=== PATIENT | female | born 1995 | race Caucasian/White ===

== ENCOUNTER 2021-04-15 17:19 | Emergency (ER) | payer OTHER, SELFPAY ==
[2021-04-15] VITALS (27 sets, daily range): BP systolic 94–130; BP diastolic 62–82; PULSE 64–94; RESP 14–24; TEMP 36.9; O2SAT 95–100; BMI 25.7
--- NOTE | 2021-04-15 17:28 | DI.CT.S_ITS ---
PROCEDURE: CT STROKE INDICATIONS: sudden vision loss w/ pupil change TECHNIQUE: Noncontrast 4.5 mm thick angled axial sections acquired from the foramen magnum to the vertex, with coronal reformats. For radiation dose reduction, the following was used: automated exposure control, adjustment of mA and/or kV according to patient size. COMPARISON: None. FINDINGS: Image quality: Excellent. CSF spaces: Basal cisterns are patent. No extra-axial fluid collections. Ventricles are normal in size and shape. Brain: No midline shift. No intracranial masses or hemorrhage. Spears-white matter interface is normal. Skull and face: Calvarium and visualized facial bones are intact, without suspicious lesions. Sinuses: Visualized sinuses and mastoids are clear. IMPRESSION: 1. No CT evidence of acute intracranial process. 2. Findings discussed with Dr. Muse are in the emergency room at 17:41 hours. This study fulfills neurological imaging criteria for inclusion or exclusion of acute stroke therapies based on available published neurological imaging guidelines. Dictated by: Corine Huddleston M.D. on 04/15/2021 at 17:39 Approved by: Corine Huddleston M.D. on 04/15/2021 at 17:42
--- NOTE | 2021-04-15 17:42 | DI.CT.S_ITS ---
PROCEDURE: CT ANGIO HEAD AND NECK INDICATIONS: code stroke TECHNIQUE: After the administration of intravenous contrast, 1 mm thick sections acquired from the aortic arch through the [employer] [place] [employer] [place]. Post-contrast 4.5 mm thick sections then re-acquired from the foramen magnum to the vertex. 3-dimensional nxmjhpm-buzospwgw-fntcnzligg (MIP) and/or volume rendering reformats were acquired of the central intracranial vasculature and neck separately. COMPARISON: None. FINDINGS: Image quality: Excellent. BRAIN: CSF spaces: Ventricles are normal in size and shape. Basal cisterns are patent. No extra-axial fluid collections. Brain: No midline shift. No intracranial bleeds or masses. Spears-white matter interface appears intact. Skull and face: Calvarium and facial bones appear intact, without suspicious lesions. Orbits appear normal. Sinuses: Sinuses and mastoids are clear. HEAD CT ANGIOGRAPHY: Anterior circulation: Intracranial internal carotid arteries are normal in size and flow. The flow within the paired anterior cerebral arteries is normal and symmetric. The flow within the middle cerebral arteries is normal and symmetric. The anterior communicating artery is seen. No aneurysms are seen. Posterior circulation: Visualized portions of the vertebral arteries demonstrate normal caliber, and join to form a normal appearing basilar artery. Flow within the posterior cerebral arteries is normal and symmetric. No aneurysms are seen. NECK CT ANGIOGRAPHY: Carotid system: The great vessels demonstrate a conventional anatomy as they arise from the aortic arch. The origins of the common carotid arteries appear patent. The common carotid arteries demonstrate normal caliber and courses. The bifurcation regions are both widely patent. The internal carotid arteries demonstrate normal calibers and courses. Posterior circulation: The origins of the vertebral arteries both appear widely patent. The more superior extracranial portions of both vertebral arteries also demonstrate normal courses and calibers. They join to form a normal appearing basilar artery. Soft tissues: Visualized neck soft tissues demonstrate no suspicious abnormalities. Bones: No suspicious bony lesions. Visualized cervical spine appears normally aligned. IMPRESSION: 1. Normal CT angiogram of the head without evidence of aneurysm or vascular occlusion. 2. Normal CT angiogram of the neck without dissection or vascular occlusion. 3. No postcontrast abnormalities in the brain. Any quantitative measurements of stenosis were performed using NASCET criteria. Dictated by: Corine Huddleston M.D. on 04/15/2021 at 18:36 Approved by: Corine Huddleston M.D. on 04/15/2021 at 18:45
--- NOTE | 2021-04-15 17:45 | ED_ITS ---
HPI - Neuro Symptoms/Deficit <Markel Muse DO - Last Filed: 04/16/21 06:57> General Chief Complaint: Neuro Symptoms/Deficit Stated Complaint: sudden eye problems, passed out Time Seen by Provider: 04/15/21 17:41 History of Present Illness HPI Narrative: Patient is a 25-year-old female here for evaluation of vision changes to her right eye, reported seizure-like activity, headache. It was reported that approximately 20 minutes prior to arrival here in the emergency department they were sitting outside. She states she started having irritation in her right eye. Her friends then looked at her noticed that her right eye was more dilated than the left. She states that she felt like she needed to keep her eye closed because it was very bright and that I. Has some blurry vision in that right eye. In route here to the emergency department she had was reported be seizure-like activity. Is afebrile. No trauma. Did not appear to have any postictal state for description of friends at bedside. Has never had anything like this in the past. On Anticoagulants: No Related Data Allergies Allergy/AdvReac Type Severity Reaction Status Date / Time No Known Drug Allergies Allergy Verified 04/15/21 17:57 Review of Systems <Markel Muse DO - Last Filed: 04/16/21 06:57> Constitutional Constitutional: Denies fatigue, Denies fever(s) and Reports headache(s) Eyes Eyes: Reports as per HPI and Reports blurry vision ENT Ears, Nose, Mouth, and Throat: Denies dizziness, Reports headache(s), Denies disequilibrium and Denies sore throat Cardiovascular Cardiovascular: Denies chest pain, Denies syncope and Denies dyspnea Respiratory Respiratory: Denies dyspnea Gastrointestinal Gastrointestinal: Denies abdominal pain Genitourinary Genitourinary: Denies dysuria Musculoskeletal Musculoskeletal: Reports system reviewed and no additional complaints, except as documented Integumentary/Breasts Skin/Breast: Reports system reviewed and no additional complaints, except as documented Neurologic Neurologic: Denies abnormal speech, Denies behavioral changes, Denies confusion, Denies dizziness, Denies syncope, Reports headache(s), Reports convulsions, Reports seizure-like activity and Denies disequilibrium Psychiatric Psychiatric: Denies behavioral changes and Denies confusion Endocrine Endocrine: Reports system reviewed and no additional complaints, except as documented and Denies fatigue Hematologic/Lymphatic On Anticoagulants: No Allergic/Immunologic Allergic/Immunologic: Reports system reviewed and no additional complaints, except as documented Patient History <Markel Muse DO - Last Filed: 04/16/21 06:57> Medical History Healthy adult Social History lives independently: Yes Smoking Status: Current some day smoker Exam <Markel Mues DO - Last Filed: 04/16/21 06:57> Initial Vital Signs Initial Vital Signs: Vital Signs Temperature 98.5 F 04/15/21 17:42 Pulse Rate 70 04/15/21 17:42 Respiratory Rate 18 04/15/21 17:42 Blood Pressure 94/62 04/15/21 17:42 Pulse Oximetry 100 04/15/21 17:42 Const General: cooperative, healthy appearing, comfortable, well developed and No ill appearing Nutritional Appearance: average body habitus HENMT Head: normal to inspection and normocephalic Nose: external nose normal Face and sinus: normal facial exam Mouth: oral mucosae normal Teeth and gingiva: dentition normal Eyes Periorbital: periorbital findings normal Eyelids: eyelids normal EOM: EOM intact bilaterally Other: Right pupil 9 mm and nonreactive. Left pupil 3-4 mm and reactive. Interocular pressure right eye 33. Interocular pressure left eye 22 Neck Neck: normal visual inspection Chest Chest: normal inspection of the chest Resp Effort & Inspection: normal respiratory effort Auscultation: clear to auscultation bilaterally Cardio Rate: regular rate Rhythm: regular rhythm GI Inspection: normal to inspection Palpation: soft Skin General: no rashes or lesions noted Neuro General: patient alert, patient awake, patient oriented x3, moves all extremities and not confused Speech: speech normal Gait: normal gait Motor: muscle tone normal throughout Extrem General: normal to inspection and capillary refill normal Psych Appearance: grossly normal and well kempt <Chantel Moulton MD - Last Filed: 04/16/21 04:32> Initial Vital Signs Initial Vital Signs: Vital Signs Temperature 98.5 F 04/15/21 17:42 Pulse Rate 70 04/15/21 17:42 Respiratory Rate 18 04/15/21 17:42 Blood Pressure 94/62 04/15/21 17:42 Pulse Oximetry 100 04/15/21 17:42 Scores <Markel Muse DO - Last Filed: 04/16/21 06:57> GCS Lovejoy coma scale eye opening: Spontaneous Jia coma scale verbal response: Orientated Lovejoy coma scale motor response: Obey commands Lovejoy coma scale total score: 15 NIH Stroke Scale Level of Conciousness: Alert, keenly responsive Ask month/age: Answers both questions correctly. Open/close eyes, close hand: Performs both tasks correctly Best gaze horizontal: Normal Visual garcia: No visual loss Facial palsy: Normal symetrical movement Left arm drift: No drift for full 10 sec Right arm drift: No drift for full 10 sec Left leg drift: No drift for full 5 sec Right leg drift: No drift for full 5 sec Limb ataxia: Absent Sensory on face/arms/legs: Mild to moderate sensory loss, can tell touch Best language: No aphasia, normal Dysarthria: Normal Extinction or inattention: No abnormality Total NIH Stroke scale score: 1 <Chantel Moulton MD - Last Filed: 04/16/21 04:32> GCS Jia coma scale total score: 15 NIH Stroke Scale Total NIH Stroke scale score: 1 Course <Markel Muse DO - Last Filed: 04/16/21 06:57> Orders Ordered: Discontinued Medications Fluorescein Sodium (Fluorescein 1 Mg Strip) 1 mg EYE-BOTH NOW ONE Stop: 04/15/21 17:44 Last Admin: 04/15/21 17:58 Dose: 1 mg Documented by: JEVON Pilocarpine HCl (Pilocarpine 1% Ophth Drops 15 Ml) 1 drops EYE-BOTH NOW ONE Stop: 04/15/21 21:39 Last Admin: 04/15/21 22:46 Dose: 1 drops Documented by: KOMAL Proparacaine HCl (Proparacaine 0.5% Ophth Bella) 1 drops EYE-RIGHT NOW ONE Stop: 04/15/21 17:44 Last Admin: 04/15/21 17:58 Dose: 1 drop Documented by: JEVON Vital Signs Vital signs: Vital Signs - 8 hr 04/15/21 23:00 04/15/21 23:15 04/15/21 23:30 Pulse Rate 94 H 70 68 Respiratory Rate 21 18 Blood Pressure 130/79 108/70 Pulse Oximetry 97 96 98 04/15/21 23:47 Pulse Rate 65 Respiratory Rate 16 Blood Pressure 108/70 Pulse Oximetry 97 <Chantel Moulton MD - Last Filed: 04/16/21 04:32> Course Course Narrative: 852pm Discussed care with [facility]. CT images are being pushed to [facility]. Ophthalmology is being paged. Patient remains stable and unchanged Orders Ordered: Discontinued Medications Fluorescein Sodium (Fluorescein 1 Mg Strip) 1 mg EYE-BOTH NOW ONE Stop: 04/15/21 17:44 Last Admin: 04/15/21 17:58 Dose: 1 mg Documented by: JEVON Pilocarpine HCl (Pilocarpine 1% Ophth Drops 15 Ml) 1 drops EYE-BOTH NOW ONE Stop: 04/15/21 21:39 Last Admin: 04/15/21 22:46 Dose: 1 drops Documented by: KOMAL Proparacaine HCl (Proparacaine 0.5% Ophth Bella) 1 drops EYE-RIGHT NOW ONE Stop: 04/15/21 17:44 Last Admin: 04/15/21 17:58 Dose: 1 drop Documented by: JEVON Vital Signs Vital signs: Vital Signs - 8 hr 04/15/21 23:00 04/15/21 23:15 04/15/21 23:30 Pulse Rate 94 H 70 68 Respiratory Rate 21 18 Blood Pressure 130/79 108/70 Pulse Oximetry 97 96 98 04/15/21 23:47 Pulse Rate 65 Respiratory Rate 16 Blood Pressure 108/70 Pulse Oximetry 97 MDM - Neuro Symptoms/Deficit <Markel Muse DO - Last Filed: 04/16/21 06:57> Lab Data Result diagrams: 04/15/21 17:45 04/15/21 17:45 Labs: Lab Results 04/15/21 04/15/21 04/15/21 Range/Units 17:45 17:45 17:45 WBC 8.8 (4.5-11.0) X10^3/uL RBC 4.67 (4.0-5.2) X10^6/uL Hgb 14.0 (12.0-16.0) g/dL Hct 41.5 (36-46) % MCV 88.8 (80-100) fL MCH 29.9 (26-34) PG MCHC 33.7 (30-36) % RDW 12.4 (11.6-14.8) % Plt Count 276 (150-400) X10^3/uL Neut % (Auto) 56.9 (50-75) % Lymph % (Auto) 34.8 (25-40) % [place] % (Auto) 6.5 (3-14) % Eos % (Auto) 1.1 L (2-4) % Baso % (Auto) 0.7 (0-2) % Neut # (Auto) 5000 (5885-5056) /uL Lymph # (Auto) 3100 (1588-5568) /uL [place] # (Auto) 600 (0-900) /uL Eos # (Auto) 100 (0-450) /uL Baso # (Auto) 100 (0-100) /uL PT (10.1-12.7) SECONDS INR (0.9-1.3) APTT (26.4-36.2) SECONDS Sodium 138 (137-145) mmol/L Potassium 3.5 (3.4-5.1) mmol/L Chloride 104 (98-107) mmol/L Carbon Dioxide 26 (22-32) mmol/L BUN 11 (7-17) mg/dL Creatinine 0.77 (0.52-1.04) mg/dL Estimated GFR > 60.0 (>60) mL/min BUN/Creatinine Ratio 14.3 (6-22) Glucose 115 H (70-100) mg/dL Calcium 9.4 (8.4-10.2) mg/dL Total Bilirubin 0.4 (0.2-1.3) mg/dL AST 23 (14-36) IU/L ALT 14 (<35) IU/L Alkaline Phosphatase 39 (38-126) U/L Total Creatine Kinase 94 (30-135) U/L CK-MB (CK-2) TNP CK-MB (CK-2) Rel Index TNP Troponin I < 0.012 (0.01-0.034) ng/mL Total Protein 7.6 (6.3-8.2) g/dL Albumin 4.5 (3.5-5.0) g/dL Globulin 3.1 (1.7-4.1) g/dL Albumin/Globulin Ratio 1.5 (1.0-2.8) Serum , Qual Negative (Negative) U Opiates 300ng/mL cut (Negative) Ur Oxycodone Screen (Negative) Urine Methadone Screen (Negative) Ur Barbiturates Screen (Negative) U Tricyclic Antidepress (Negative) Ur Phencyclidine Scrn (Negative) Ur Amphetamines Screen (Negative) U Methamphetamines Scrn (Negative) Ur MDMA Scrn (Ecstasy) (Negative) U Benzodiazepines Scrn (Negative) Urine Cocaine Screen (Negative) U Marijuana (THC) Screen (Negative) SARS-CoV-2 (PCR) (Negative) 04/15/21 04/15/21 04/15/21 Range/Units 17:45 18:05 18:08 WBC (4.5-11.0) X10^3/uL RBC (4.0-5.2) X10^6/uL Hgb (12.0-16.0) g/dL Hct (36-46) % MCV (80-100) fL MCH (26-34) PG MCHC (30-36) % RDW (11.6-14.8) % Plt Count (150-400) X10^3/uL Neut % (Auto) (50-75) % Lymph % (Auto) (25-40) % [place] % (Auto) (3-14) % Eos % (Auto) (2-4) % Baso % (Auto) (0-2) % Neut # (Auto) (9809-5003) /uL Lymph # (Auto) (0339-4641) /uL [place] # (Auto) (0-900) /uL Eos # (Auto) (0-450) /uL Baso # (Auto) (0-100) /uL PT 12.2 (10.1-12.7) SECONDS INR 1.1 (0.9-1.3) APTT 29 (26.4-36.2) SECONDS Sodium (137-145) mmol/L Potassium (3.4-5.1) mmol/L Chloride (98-107) mmol/L Carbon Dioxide (22-32) mmol/L BUN (7-17) mg/dL Creatinine (0.52-1.04) mg/dL Estimated GFR (>60) mL/min BUN/Creatinine Ratio (6-22) Glucose (70-100) mg/dL Calcium (8.4-10.2) mg/dL Total Bilirubin (0.2-1.3) mg/dL AST (14-36) IU/L ALT (<35) IU/L Alkaline Phosphatase (38-126) U/L Total Creatine Kinase (30-135) U/L CK-MB (CK-2) CK-MB (CK-2) Rel Index Troponin I (0.01-0.034) ng/mL Total Protein (6.3-8.2) g/dL Albumin (3.5-5.0) g/dL Globulin (1.7-4.1) g/dL Albumin/Globulin Ratio (1.0-2.8) Serum , Qual (Negative) U Opiates 300ng/mL cut Negative (Negative) Ur Oxycodone Screen Negative (Negative) Urine Methadone Screen Negative (Negative) Ur Barbiturates Screen Negative (Negative) U Tricyclic Antidepress Negative (Negative) Ur Phencyclidine Scrn Negative (Negative) Ur Amphetamines Screen Negative (Negative) U Methamphetamines Scrn Negative (Negative) Ur MDMA Scrn (Ecstasy) Negative (Negative) U Benzodiazepines Scrn Negative (Negative) Urine Cocaine Screen Negative (Negative) U Marijuana (THC) Screen Negative (Negative) SARS-CoV-2 (PCR) Negative (Negative) Point of Care Testing Test Results Negative Glucose POC 90 Urine Dip Bedside Urine Glucose Negative Bedside Urine Bilirubin - Negative Bedside Urine Ketone - Negative Urine Specific [place] 1.015 Bedside Urine Occult Blood - Negative Bedside Urine pH 6 Bedside Urine Protein - Negative Bedside Urine Urobilinogen - Negative Bedside Urine Nitrite - Negative Bedside Urine Leukocytes - Negative Esterase Imaging Data CT scan - head: Radiologist's Impression: [address] [id number] Scan ReportSigned Patient: Harini Siddiqi EMR#: [id number]: 1995Acct:[id number]/Sex: 25 / FDate of Service: 04/15/21Loc: EDAccession Number: [id number] Procedure: CT Stroke Ordering Provider: Markel Muse D.O. PROCEDURE: CT STROKE INDICATIONS: sudden vision loss w/ pupil change TECHNIQUE: Noncontrast 4.5 mm thick angled axial sections acquired from the foramen magnum to the vertex, with coronal reformats. For radiation dose reduction, the following was used: automated exposure control, adjustment of mA and/or kV according to patient size. COMPARISON: None. FINDINGS: Image quality: Excellent. CSF spaces: Basal cisterns are patent. No extra-axial fluid collections. Ventricles are normal in size and shape. Brain: No midline shift. No intracranial masses or hemorrhage. Spears-white matter interface is normal. Skull and face: Calvarium and visualized facial bones are intact, without suspicious lesions. Sinuses: Visualized sinuses and mastoids are clear. IMPRESSION: 1. No CT evidence of acute intracranial process. 2. Findings discussed with Dr. Muse are in the emergency room at 17:41 hours. This study fulfills neurological imaging criteria for inclusion or exclusion of acute stroke therapies based on available published neurological imaging guidelines. Dictated by: Corine Huddleston M.D. on 04/15/2021 at 17:39 Approved by: Corine Huddleston M.D. on 04/15/2021 at 17:42 CTA - brain/neck: Radiologist's Impression: [address] [id number] Scan ReportSigned Patient: Harini Siddiqi EMR#: [id number]: 1995Acct:[id number]/Sex: 25 / FDate of Service: 04/15/21Loc: EDAccession Number: [id number] Procedure: CT angio head and neck Ordering Provider: Markel Muse D.O. PROCEDURE: CT ANGIO HEAD AND NECK INDICATIONS: code stroke TECHNIQUE: After the administration of intravenous contrast, 1 mm thick sections acquired from the aortic arch through the [place] of [place]. Post-contrast 4.5 mm thick sections then re-acquired from the foramen magnum to the vertex. 3-dimensional mxjgodz-jmwhdrleb-wlrqoazqlv (MIP) and/or volume rendering reformats were acquired of the central intracranial vasculature and neck separately. COMPARISON: None. FINDINGS: Image quality: Excellent. BRAIN: CSF spaces: Ventricles are normal in size and shape. Basal cisterns are patent. No extra-axial fluid collections. Brain: No midline shift. No intracranial bleeds or masses. Spears-white matter interface appears intact. Skull and face: Calvarium and facial bones appear intact, without suspicious lesions. Orbits appear normal. Sinuses: Sinuses and mastoids are clear. HEAD CT ANGIOGRAPHY: Anterior circulation: Intracranial internal carotid arteries are normal in size and flow. The flow within the paired anterior cerebral arteries is normal and symmetric. The flow within the middle cerebral arteries is normal and symmetric. The anterior communicating artery is seen. No aneurysms are seen. Posterior circulation: Visualized portions of the vertebral arteries demonstrate normal caliber, and join to form a normal appearing basilar artery. Flow within the posterior cerebral arteries is normal and symmetric. No aneurysms are seen. NECK CT ANGIOGRAPHY: Carotid system: The great vessels demonstrate a conventional anatomy as they arise from the aortic arch. The origins of the common carotid arteries appear patent. The common carotid arteries demonstrate normal caliber and courses. The bifurcation regions are both widely patent. The internal carotid arteries demonstrate normal calibers and courses. Posterior circulation: The origins of the vertebral arteries both appear widely patent. The more superior extracranial portions of both vertebral arteries also demonstrate normal courses and calibers. They join to form a normal appearing basilar artery. Soft tissues: Visualized neck soft tissues demonstrate no suspicious abnormalities. Bones: No suspicious bony lesions. Visualized cervical spine appears normally aligned. IMPRESSION: 1. Normal CT angiogram of the head without evidence of aneurysm or vascular occlusion. 2. Normal CT angiogram of the neck without dissection or vascular occlusion. 3. No postcontrast abnormalities in the brain. Any quantitative measurements of stenosis were performed using NASCET criteria. Dictated by: Corine Huddleston M.D. on 04/15/2021 at 18:36 Approved by: Corine Huddleston M.D. on 04/15/2021 at 18:45 ECG Data Attestation: I personally reviewed and interpreted this ECG as follows: Interpretation: Sinus rhythm Ventricular rate is 65 Normal axis Normal QRS Normal QTC No ST T wave changes MDM Narrative Medical decision making narrative: Patient arrived approximately 1 hour prior to the onset of the symptoms. She does have a dilated non reactive right pupil. Her visual acuity is 2020 right eye. [address] and CTA of the head unremarkable. EKG unremarkable. NIH score of 1. Will hold on tPA given this information. Right pupil is nonreactive. Her left pupil does constrict when light is shined into her right eye. Care turned over to Dr. moulton to follow-up and discuss the case with Ophthalmology. <Chantel Moulton MD - Last Filed: 04/16/21 04:32> Lab Data Labs: Lab Results 04/15/21 04/15/21 04/15/21 Range/Units 17:45 17:45 17:45 WBC 8.8 (4.5-11.0) X10^3/uL RBC 4.67 (4.0-5.2) X10^6/uL Hgb 14.0 (12.0-16.0) g/dL Hct 41.5 (36-46) % MCV 88.8 (80-100) fL MCH 29.9 (26-34) PG MCHC 33.7 (30-36) % RDW 12.4 (11.6-14.8) % Plt Count 276 (150-400) X10^3/uL Neut % (Auto) 56.9 (50-75) % Lymph % (Auto) 34.8 (25-40) % [place] % (Auto) 6.5 (3-14) % Eos % (Auto) 1.1 L (2-4) % Baso % (Auto) 0.7 (0-2) % Neut # (Auto) 5000 (1019-2587) /uL Lymph # (Auto) 3100 (0272-7138) /uL [place] # (Auto) 600 (0-900) /uL Eos # (Auto) 100 (0-450) /uL Baso # (Auto) 100 (0-100) /uL PT (10.1-12.7) SECONDS INR (0.9-1.3) APTT (26.4-36.2) SECONDS Sodium 138 (137-145) mmol/L Potassium 3.5 (3.4-5.1) mmol/L Chloride 104 (98-107) mmol/L Carbon Dioxide 26 (22-32) mmol/L BUN 11 (7-17) mg/dL Creatinine 0.77 (0.52-1.04) mg/dL Estimated GFR > 60.0 (>60) mL/min BUN/Creatinine Ratio 14.3 (6-22) Glucose 115 H (70-100) mg/dL Calcium 9.4 (8.4-10.2) mg/dL Total Bilirubin 0.4 (0.2-1.3) mg/dL AST 23 (14-36) IU/L ALT 14 (<35) IU/L Alkaline Phosphatase 39 (38-126) U/L Total Creatine Kinase 94 (30-135) U/L CK-MB (CK-2) TNP CK-MB (CK-2) Rel Index TNP Troponin I < 0.012 (0.01-0.034) ng/mL Total Protein 7.6 (6.3-8.2) g/dL Albumin 4.5 (3.5-5.0) g/dL Globulin 3.1 (1.7-4.1) g/dL Albumin/Globulin Ratio 1.5 (1.0-2.8) Serum , Qual Negative (Negative) U Opiates 300ng/mL cut (Negative) Ur Oxycodone Screen (Negative) Urine Methadone Screen (Negative) Ur Barbiturates Screen (Negative) U Tricyclic Antidepress (Negative) Ur Phencyclidine Scrn (Negative) Ur Amphetamines Screen (Negative) U Methamphetamines Scrn (Negative) Ur MDMA Scrn (Ecstasy) (Negative) U Benzodiazepines Scrn (Negative) Urine Cocaine Screen (Negative) U Marijuana (THC) Screen (Negative) SARS-CoV-2 (PCR) (Negative) 04/15/21 04/15/21 04/15/21 Range/Units 17:45 18:05 18:08 WBC (4.5-11.0) X10^3/uL RBC (4.0-5.2) X10^6/uL Hgb (12.0-16.0) g/dL Hct (36-46) % MCV (80-100) fL MCH (26-34) PG MCHC (30-36) % RDW (11.6-14.8) % Plt Count (150-400) X10^3/uL Neut % (Auto) (50-75) % Lymph % (Auto) (25-40) % [place] % (Auto) (3-14) % Eos % (Auto) (2-4) % Baso % (Auto) (0-2) % Neut # (Auto) (9532-0032) /uL Lymph # (Auto) (4734-9269) /uL [place] # (Auto) (0-900) /uL Eos # (Auto) (0-450) /uL Baso # (Auto) (0-100) /uL PT 12.2 (10.1-12.7) SECONDS INR 1.1 (0.9-1.3) APTT 29 (26.4-36.2) SECONDS Sodium (137-145) mmol/L Potassium (3.4-5.1) mmol/L Chloride (98-107) mmol/L Carbon Dioxide (22-32) mmol/L BUN (7-17) mg/dL Creatinine (0.52-1.04) mg/dL Estimated GFR (>60) mL/min BUN/Creatinine Ratio (6-22) Glucose (70-100) mg/dL Calcium (8.4-10.2) mg/dL Total Bilirubin (0.2-1.3) mg/dL AST (14-36) IU/L ALT (<35) IU/L Alkaline Phosphatase (38-126) U/L Total Creatine Kinase (30-135) U/L CK-MB (CK-2) CK-MB (CK-2) Rel Index Troponin I (0.01-0.034) ng/mL Total Protein (6.3-8.2) g/dL Albumin (3.5-5.0) g/dL Globulin (1.7-4.1) g/dL Albumin/Globulin Ratio (1.0-2.8) Serum , Qual (Negative) U Opiates 300ng/mL cut Negative (Negative) Ur Oxycodone Screen Negative (Negative) Urine Methadone Screen Negative (Negative) Ur Barbiturates Screen Negative (Negative) U Tricyclic Antidepress Negative (Negative) Ur Phencyclidine Scrn Negative (Negative) Ur Amphetamines Screen Negative (Negative) U Methamphetamines Scrn Negative (Negative) Ur MDMA Scrn (Ecstasy) Negative (Negative) U Benzodiazepines Scrn Negative (Negative) Urine Cocaine Screen Negative (Negative) U Marijuana (THC) Screen Negative (Negative) SARS-CoV-2 (PCR) Negative (Negative) Point of Care Testing Test Results Negative Glucose POC 90 Urine Dip Bedside Urine Glucose Negative Bedside Urine Bilirubin - Negative Bedside Urine Ketone - Negative Urine Specific [place] 1.015 Bedside Urine Occult Blood - Negative Bedside Urine pH 6 Bedside Urine Protein - Negative Bedside Urine Urobilinogen - Negative Bedside Urine Nitrite - Negative Bedside Urine Leukocytes - Negative Esterase MDM Narrative Medical decision making narrative: Patient arrived approximately 1 hour prior to the onset of the symptoms. She does have a dilated non reactive right pupil. Her visual acuity is 2020 right eye. [address] and CTA of the head unremarkable. EKG unremarkable. NIH score of 1. Will hold on tPA given this information. Right pupil is nonreactive. Her left pupil does constrict when light is shined into her right eye. Care turned over to Dr. moulton to follow-up and discuss the case with Ophthalmology. 1000pm Discussed with Dr Stuart, othomology. repeat pressures Right 25 Left 33 not acute angle closure or occular hypertension not actue trauma, stroke, aneurysm, retinal detachement, globe rupture REcommonded trial of .05% pilocrpine drop in Right eye. (diluted .1%) done. Pupil constricts to mid position. Vision now blurry. EOEMI. 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 No a true cranial nerve palsy (wouldn't expect constriction with pilocarpine with a cranial nerve palsy) Information from [employer] on tonic pupil/Adie pupil is given to the patient. At this point, I believe she is safe for home discharge. Ophthalmology did not recommend continuing to plan for MRI at this point. He did recommend follow-up with Ophthalmology when she returns home. Findings and recommendations along with very clear return to the ER precautions reviewed with patient. She is safe for home discharge Critical Care Time <Markel Muse, DO - Last Filed: 04/16/21 06:57> Critical Care Time Critical Care Time: Yes Total Critical Care Time: 35 Attestation: The high probability of a clinically significant, sudden or life threatening deterioration of the neurologic system(s) required my full and direct attention, intervention and personal management. The aggregate critical care time was 35 minutes. This time is in addition to time spent performing reported procedures but includes the following: [x] Data Review and interpretation [x] Patient assessment and monitoring of vital signs [x] Documentation [x] Medication orders and management Discharge Plan Departure Patient Disposition: Home Clinical Impression: Adie's tonic pupil Qualifiers: Laterality: right Qualified Code(s): H57.051 - Tonic pupil, right eye Activity Restrictions/Additional Instructions: Thank you for coming in today After blood work, CT of your brain CT a of the head neck and consultation with Ophthalmology at [facility] in [place], I believe the best explanation for your dilated pupil is Adie's pupil I have given you printed information from up-to-date regarding what this diagnosis actually is. I have also given you printed copies of your CTs and when you do return home I would request that you follow-up with ophthalmology. In the meantime, if you have new or worsening symptoms, double vision, loss of vision, repeat near syncopal episode or other concerns please return to the ER I hope the rest of your field work goes well
[2021-04-15 17:53] LABS: Add Manual Diff / Slide Review NO; Basophils Absolute Auto 100 /uL (0-100); Basophils Percent Auto 0.7 % (0-2); Eosinophils Absolute Auto 100 /uL (0-450); Eosinophils Percent Auto 1.1 % (2-4); Hematocrit 41.5 % (36-46); Lymphocytes Absolute Auto 3100 /uL (1100-4500); Lymphocytes Percent Auto 34.8 % (25-40); Mean Corpuscular HGB Conc 33.7 % (30-36); Mean Corpuscular Hemoglobin 29.9 PG (26-34); Mean Corpuscular Volume 88.8 fL (80-100); Monocytes Absolute Auto 600 /uL (0-900); Monocytes Percent Auto 6.5 % (3-14); Neutrophils Absolute Auto 5000 /uL (1500-7000); Neutrophils Percent Auto 56.9 % (50-75); Platelet Count 276 X10^3/uL (150-400); Red Blood Cell Count 4.67 X10^6/uL (4.0-5.2); Red Cell Distribution Width 12.4 % (11.6-14.8); White Blood Cell Count 8.8 X10^3/uL (4.5-11.0)
[2021-04-15] MEDS: FLUORESCEIN 1 MG STRIP EYE-BOTH (17:58)
[2021-04-15] MEDS: PROPARACAINE 0.5% OPHTH SOL 1 DROPS EYE-RIGHT (17:58)
[2021-04-15 18:03] LABS: Pregnancy Test Serum,Qual Negative (Negative)
[2021-04-15 18:04] LABS: Alanine Aminotransferase 14 IU/L (<35); Albumin 4.5 g/dL (3.5-5.0); Albumin Globulin Ratio 1.5 (1.0-2.8); Alkaline Phosphatase 39 U/L (38-126); Aspartate Aminotransferase 23 IU/L (14-36); BUN Creatinine Ratio 14.3 (6-22); Bilirubin Total 0.4 mg/dL (0.2-1.3); Blood Urea Nitrogen 11 mg/dL (7-17); Calcium 9.4 mg/dL (8.4-10.2); Carbon Dioxide 26 mmol/L (22-32); Chloride 104 mmol/L (98-107); Creatine Kinase 94 U/L (30-135); Estimated Glomerular Filt Rate > 60.0 mL/min (>60); Globulin 3.1 g/dL (1.7-4.1); Glucose 115 mg/dL (70-100); HEMOLYSIS < 15 (0-50); Potassium 3.5 mmol/L (3.4-5.1); Sodium 138 mmol/L (137-145); Total Protein 7.6 g/dL (6.3-8.2)
[2021-04-15 18:13] LABS: COVID19 -Nasal RAPID Negative (Negative)
[2021-04-15 18:16] LABS: Troponin I < 0.012 ng/mL (0.01-0.034)
[2021-04-15 18:21] LABS: INR 1.1 (0.9-1.3); Prothrombin Time 12.2 SECONDS (10.1-12.7)
[2021-04-15 18:21] LABS: UR Morphine/Opiate cutoff 300 Negative (Negative); Ur Creatinine Normal (Normal); Ur Specific Gravity Normal (Normal); Urine Amphetamines Negative (Negative); Urine Barbiturates Negative (Negative); Urine Benzodiazepines Negative (Negative); Urine Cocaine Negative (Negative); Urine MDMA Negative (Negative); Urine Methadone Negative (Negative); Urine Methamphetamines Negative (Negative); Urine Oxycodone Negative (Negative); Urine Phencyclidine Negative (Negative); Urine Tetrahydrocannabinol Negative (Negative); Urine Tricyclic Antidepressant Negative (Negative); Urine pH Normal (Normal)
[2021-04-15 18:24] LABS: PTT Partial Thromboplastin Tim 29 SECONDS (26.4-36.2)
[2021-04-15] MEDS: PILOCARPINE 1% 1 DROPS EYE-BOTH (22:46)
== END 2021-04-15 23:51 | disposition home or self-care (01) ==
PROVIDERS: Emergency Provider Emergency Medicine
DX: H57.051 Tonic pupil, right eye (principal); H53.8 Other visual disturbances; R51.9 Headache, unspecified; R56.9 Unspecified convulsions; Z20.822 Contact with and (suspected) exposure to COVID-19
CPT/HCPCS: 36415; 70450; 70496; 70498; 80053; 80305; 81003; 81025; 82550; 82962; 84484; 84703; 85025; 85610; 85730; 87635; 93005; 93010; 99285; 99291; C9803; Q9967